=== PATIENT | female | born 1945 | race Caucasian/White ===

== ENCOUNTER 2017-04-01 09:49 | Observation (INO) ==
[2017-04-01] MEDS ORDERED: 0.9 % Sodium Chloride 1,000 ML IVC ONE (09:57)
--- NOTE | 2017-04-01 10:07 | Emergency Department Note ---
Disposition Clinical Impression: Dehydration, Hyperglycemia Altered mental status Qualifiers: Altered mental status type: unspecified Qualified Code(s): R41.82 - Altered mental status, unspecified UTI (urinary tract infection) Qualifiers: Urinary tract infection type: acute cystitis Hematuria presence: without hematuria Qualified Code(s): N30.00 - Acute cystitis without hematuria Disposition: Admitted As Inpatient Condition: Fair Time of Disposition: 14:51 General Adult HPI - General Chief complaint: ED Fall Stated complaint: Fall x3, Dizzy, hyperglycemia Time Seen by Provider: 04/01/17 09:51 Source: patient, EMS Limitations: no limitations Nursing Notes Reviewed: Yes Vital Signs Reviewed: Yes - History of Present Illness HPI Narrative: 71-year-old female presents ED because of weakness and falls. She was feeling generally weak and having trouble standing and fell a couple of times. She denies any injuries from the fall. Her only subjective complaint right now is that her feet hurt from her chronic diabetic neuropathy. She denies any chest discomfort now or this morning. No associated dyspnea. She did get clammy a couple of times. No nausea or vomiting. Prehospital EKG was suggestive of inferior wall IA and she was hypotensive with systolic blood pressure 90. She received 300 mL IV bolus of saline with supplemental improvement of blood pressure. Patient presents at this point with no active chest discomfort or dyspnea. Only complains of foot pain bilaterally from her chronic diabetic neuropathy. Denies recent change in medications. She is diabetic but cannot say what her glucose has been running. Prehospital glucose was over 400. She complains of polyuria and dry mouth Pt Subjective Complaint: Weakness and recurrent falls Onset (ago): hour(s) Pain Scale: 0 Quality: other Consistency: other Improves with: nothing - Related Data Home Medications Medication Instructions Recorded Confirmed Gabapentin [Neurontin] 300 mg PO TID 05/22/16 05/22/16 Insulin ASPART [NovoLOG] 30 unit SQ TIDWM 05/22/16 05/22/16 Insulin DETEMIR [Levemir] 24 unit SQ BID 05/22/16 05/22/16 Lisinopril [Zestril] 40 mg PO DAILY 05/22/16 05/22/16 Sertraline [Zoloft] 150 mg PO DAILY 04/01/17 04/01/17 Trazodone HCl 200 mg PO HS 04/01/17 04/01/17 Allergies Allergy/AdvReac Type Severity Reaction Status Date / Time Penicillins Allergy Anaphylaxis Verified 04/01/17 15:55 Review of Systems: Complains of polyuria and increased thirst. Complains of pain in both feet but no other significant complaints. Denies chest discomfort, dyspnea or exertional symptoms. Constitutional: Reports: weakness. Denies: fever, chills Cardiovascular: Denies: chest pain, palpitations, dyspnea on exertion Respiratory: Denies: cough, dyspnea, wheezes Gastrointestinal: Denies: abdominal pain, nausea, vomiting Genitourinary: Denies: urgency, dysuria Neurological: Denies: headache Past Medical History - Past Medical History Medical history: Reports: cancer, diabetes, hyperlipidemia, hypertension Psychiatric history: Reports: anxiety [employer] history: Reports: non-contributory - Social History Smoking Status: Current every day smoker Smokeless Tobacco Status: No Alcohol use: Reports: none Drug use: Reports: none Physical Exam - General Limitations: no limitations General appearance: alert - Head Head exam: atraumatic, normocephalic - Eye Eye exam: Present: normal appearance, PERRL - ENT ENT exam: normal exam, normal oropharynx - Neck Neck exam: Present: normal inspection, full ROM - Chest Chest inspection: Present: normal inspection, symmetric chest wall rise - Respiratory Respiratory exam: Present: normal lung sounds bilaterally. Absent: respiratory distress - Cardiovascular Cardiovascular exam: Present: regular rate, normal rhythm - Abdominal Exam Abdominal exam: Present: soft, Non-Tender - Extremities Exam Extremities exam: Present: normal inspection - Expanded Lower Extremity Exam Lower leg exam: Absent: swelling Neurovascular/Tendon exam: Present: normal capillary refill - Back Exam Back exam: Present: normal inspection - Neurological Exam Neurological exam: Present: alert, oriented X3 - Psychiatric Psychiatric exam: Present: normal affect, normal mood - Skin Skin exam: Present: warm, dry Course - Reevaluation(s) Reevaluation #1: Patient is not currently having chest pain nor has she had chest pain today. She was complaining of generalized weakness and was falling and upon initial arrival of EMS she was hypotensive. Prehospital EKG was suggestive of inferior wall infarction with mild elevation and straightening of the T-wave upstroke. Her EKG has very mild elevation of less than 1 mm but contours of the EKG are suspicious for injury pattern. No current chest pain. No current dyspnea. Sending the left and right-sided EKGs to cardiology () and awaiting call back. Time: 10:06 Reevaluation #2: Spoke to Dr. Ingram; will review the EKGs Time: 10:12 Reevaluation #3: Dr. Ingram feels the EKG abnormalities are most c/w J point elevation and not STEMI Time: 10:27 Additional Reevaluation(s): 10:56 Awaiting all labs 13:12 still awaiting some labs; CBC, lactate. Catheter urine reveals moderate findings consistent with UTI. She does have a true penicillin allergy reporting that she had anaphylactic shock with it in the past. 14:35 spoke with the hospitalist for admission. Vital Signs Temperature 98.1 F 04/01/17 09:51 Pulse Rate 77 04/01/17 09:51 Respiratory Rate 16 04/01/17 09:51 Blood Pressure 133/111 04/01/17 09:51 O2 Sat by Pulse Oximetry 92 04/01/17 09:51 Temperature 98.1 F 04/01/17 16:37 Pulse Rate 64 04/01/17 16:37 Respiratory Rate 15 04/01/17 16:37 Blood Pressure 134/64 04/01/17 16:37 O2 Sat by Pulse Oximetry 95 04/01/17 16:37 Oxygen Delivery Oxygen Delivery Room Air Medical Decision Making - Lab Data Result diagrams: 04/01/17 13:15 04/01/17 10:47 Lab Results 04/01/17 04/01/17 04/01/17 Range/Units 10:03 10:47 10:47 WBC (4.3-11.1) K/mcL RBC (3.82-4.97) M/mcL Hgb (11.5-15.4) g/dL Hct (35.3-44.9) % MCV (83.0-100.0) fL MCH (28.0-33.3) pg MCHC (31.6-35.5) g/dL RDW (11.5-14.5) % Plt Count (140-400) K/mcL MPV (9.4-12.4) fL Immature Gran % (0-4) % Seg Neutrophils % % Lymphocytes % % Monocytes % % Eosinophils % % Basophils % % Neutrophils # (1.6-8.9) K/mcL Lymphocytes # (0.6-4.6) K/mcL Monocytes # (0.0-1.3) K/mcL Eosinophils # (0.0-0.6) K/mcL Basophils # (0.0-0.2) K/mcL VBG pH (7.32-7.42) pH Units VBG pCO2 (41-51) mmHg VBG pO2 (25-40) mmHg VBG HCO3 (21-27) mEq/L Sodium 136 (136-145) mEq/L Potassium 4.4 (3.5-4.5) mEq/L Chloride 103 (98-109) mEq/L Carbon Dioxide 25 (19-29) mEq/L BUN 24 H (7-20) mg/dL Creatinine 0.97 (0.57-1.11) mg/dL Est GFR ( Amer) > 60 (> 60) Est GFR (Non-Af Amer) 56 L (> 60) BUN/Creatinine Ratio 25 (6-26) Glucose 384 H (70-99) mg/dL POC Glucose 399 H (58-89) Calculated Osmolality 302 H (280-300) Lactic Acid (0.5-2.2) mmol/L Calcium 9.5 (8.6-10.8) mg/dL Magnesium 1.9 (1.6-2.6) mg/dL Troponin I 0.00 (0-0.03) ng/mL Beta-Hydroxybutyric Acd 0.25 (0.02-0.27) mmol/L Urine Color (Yellow) Urine Clarity (Clear) Urine pH (5.0-8.0) pH Units Ur Specific [place] (1.010-1.025) Urine Protein (Neg-Trace) mg/dL Urine Glucose (UA) (Normal) mg/dL Urine Ketones (Negative) mg/dL Urine Blood (Negative) Urine Nitrite (Negative) Urine Bilirubin (Negative) Urine Urobilinogen (Normal) mg/dL Ur Leukocyte Esterase (Negative) Urine Microscopic RBC (0-3) per hpf Urine Microscopic WBC (0-3) per hpf Ur Squamous Epith Cells (None-Few) per lpf Urine Bacteria (None-Few) per hpf Hyaline Casts (None-Few) per lpf Ur Culture Indicated? (NO) 04/01/17 04/01/17 04/01/17 Range/Units 10:47 12:07 12:16 WBC (4.3-11.1) K/mcL RBC (3.82-4.97) M/mcL Hgb (11.5-15.4) g/dL Hct (35.3-44.9) % MCV (83.0-100.0) fL MCH (28.0-33.3) pg MCHC (31.6-35.5) g/dL RDW (11.5-14.5) % Plt Count (140-400) K/mcL MPV (9.4-12.4) fL Immature Gran % (0-4) % Seg Neutrophils % % Lymphocytes % % Monocytes % % Eosinophils % % Basophils % % Neutrophils # (1.6-8.9) K/mcL Lymphocytes # (0.6-4.6) K/mcL Monocytes # (0.0-1.3) K/mcL Eosinophils # (0.0-0.6) K/mcL Basophils # (0.0-0.2) K/mcL VBG pH 7.34 (7.32-7.42) pH Units VBG pCO2 50 (41-51) mmHg VBG pO2 71 H (25-40) mmHg VBG HCO3 25.0 (21-27) mEq/L Sodium (136-145) mEq/L Potassium (3.5-4.5) mEq/L Chloride (98-109) mEq/L Carbon Dioxide (19-29) mEq/L BUN (7-20) mg/dL Creatinine (0.57-1.11) mg/dL Est GFR ( Amer) (> 60) Est GFR (Non-Af Amer) (> 60) BUN/Creatinine Ratio (6-26) Glucose (70-99) mg/dL POC Glucose 304 H (58-89) Calculated Osmolality (280-300) Lactic Acid (0.5-2.2) mmol/L Calcium (8.6-10.8) mg/dL Magnesium (1.6-2.6) mg/dL Troponin I (0-0.03) ng/mL Beta-Hydroxybutyric Acd (0.02-0.27) mmol/L Urine Color Yellow (Yellow) Urine Clarity Cloudy A (Clear) Urine pH 6.0 (5.0-8.0) pH Units Ur Specific [place] 1.026 H (1.010-1.025) Urine Protein Negative (Neg-Trace) mg/dL Urine Glucose (UA) >=1000 H (Normal) mg/dL Urine Ketones Negative (Negative) mg/dL Urine Blood Negative (Negative) Urine Nitrite Positive A (Negative) Urine Bilirubin Negative (Negative) Urine Urobilinogen Normal (Normal) mg/dL Ur Leukocyte Esterase Small H (Negative) Urine Microscopic RBC 0-3 (0-3) per hpf Urine Microscopic WBC 50-100 H (0-3) per hpf Ur Squamous Epith Cells Many H (None-Few) per lpf Urine Bacteria Many H (None-Few) per hpf Hyaline Casts None Seen (None-Few) per lpf Ur Culture Indicated? YES A (NO) 04/01/17 04/01/17 Range/Units 13:15 13:15 WBC 8.2 (4.3-11.1) K/mcL RBC 5.25 H (3.82-4.97) M/mcL Hgb 15.0 (11.5-15.4) g/dL Hct 44.5 (35.3-44.9) % MCV 84.8 (83.0-100.0) fL MCH 28.6 (28.0-33.3) pg MCHC 33.7 (31.6-35.5) g/dL RDW 12.5 (11.5-14.5) % Plt Count 137 L (140-400) K/mcL MPV 11.9 (9.4-12.4) fL Immature Gran % 0.1 (0-4) % Seg Neutrophils % 55.0 % Lymphocytes % 33.3 % Monocytes % 6.1 % Eosinophils % 5.0 % Basophils % 0.5 % Neutrophils # 4.5 (1.6-8.9) K/mcL Lymphocytes # 2.7 (0.6-4.6) K/mcL Monocytes # 0.5 (0.0-1.3) K/mcL Eosinophils # 0.4 (0.0-0.6) K/mcL Basophils # 0.0 (0.0-0.2) K/mcL VBG pH (7.32-7.42) pH Units VBG pCO2 (41-51) mmHg VBG pO2 (25-40) mmHg VBG HCO3 (21-27) mEq/L Sodium (136-145) mEq/L Potassium (3.5-4.5) mEq/L Chloride (98-109) mEq/L Carbon Dioxide (19-29) mEq/L BUN (7-20) mg/dL Creatinine (0.57-1.11) mg/dL Est GFR ( Amer) (> 60) Est GFR (Non-Af Amer) (> 60) BUN/Creatinine Ratio (6-26) Glucose (70-99) mg/dL POC Glucose (58-89) Calculated Osmolality (280-300) Lactic Acid 2.1 (0.5-2.2) mmol/L Calcium (8.6-10.8) mg/dL Magnesium (1.6-2.6) mg/dL Troponin I (0-0.03) ng/mL Beta-Hydroxybutyric Acd (0.02-0.27) mmol/L Urine Color (Yellow) Urine Clarity (Clear) Urine pH (5.0-8.0) pH Units Ur Specific [place] (1.010-1.025) Urine Protein (Neg-Trace) mg/dL Urine Glucose (UA) (Normal) mg/dL Urine Ketones (Negative) mg/dL Urine Blood (Negative) Urine Nitrite (Negative) Urine Bilirubin (Negative) Urine Urobilinogen (Normal) mg/dL Ur Leukocyte Esterase (Negative) Urine Microscopic RBC (0-3) per hpf Urine Microscopic WBC (0-3) per hpf Ur Squamous Epith Cells (None-Few) per lpf Urine Bacteria (None-Few) per hpf Hyaline Casts (None-Few) per lpf Ur Culture Indicated? (NO) - EKG Data EKG #1 EKG results narrative: Sinus rhythm. Electrical indices are within normal limits. Electrolytes is normal. There was a straight takeoff of J-point elevation to the T wave concerning for possible acute injury pattern. No recent precordial changes are noted. EKG #2 EKG attestation: Yes I reviewed and interpreted this EKG. EKG results narrative: Right-sided EKG reveals no injury pattern in lead V4.
[2017-04-01] MEDS ORDERED: Insulin Regular, Human 100 UNIT/ML SQ ONE (10:27)
[2017-04-01 11:05] LABS: Beta-Hydroxybutyric Acid 0.25 mmol/L (0.02-0.27)
[2017-04-01 11:14] LABS: BUN/Creatinine Ratio 25 (6-26); Blood Urea Nitrogen 24 mg/dL (7-20); Calcium 9.5 mg/dL (8.6-10.8); Carbon Dioxide 25 mEq/L (19-29); Chloride 103 mEq/L (98-109); Glucose 384 mg/dL (70-99); Magnesium 1.9 mg/dL (1.6-2.6); Osmolality,Calculated 302 (280-300); Potassium 4.4 mEq/L (3.5-4.5); Sodium 136 mEq/L (136-145); eGFR For African Americans > 60 (> 60); eGFR For Non-African Americans 56 (> 60)
[2017-04-01 11:23] LABS: VBG PH 7.34 pH Units (7.32-7.42)
[2017-04-01 12:34] LABS: Bilirubin,Urine Negative (Negative); Blood,Urine Negative (Negative); Clarity,Urine Cloudy (Clear); Color,Urine Yellow (Yellow); Glucose,Urine (UA) >=1000 mg/dL (Normal); Ketones,Urine Negative (Negative); Leukocyte Esterase,Urine Small (Negative); Nitrite,Urine Positive (Negative); Protein,Urine Negative (Neg-Trace); Specific Gravity,Urine 1.026 (1.010-1.025); Urobilinogen,Urine Normal (Normal)
[2017-04-01 12:35] LABS: Bacteria,Urine Many per hpf (None-Few); Hyaline Casts,Urine None Seen per lpf (None-Few); RBC,Urine 0-3 per hpf (0-3); Squamous Epithelial Cell,Urine Many per lpf (None-Few); WBC,Urine 50-100 per hpf (0-3)
[2017-04-01] MEDS ORDERED: Levofloxacin 500 MG/100 ML 500 MG/100 ML BAG IVPB ONE (13:15)
[2017-04-01 13:26] LABS: Basophils % 0.5 %; Eosinophils # 0.4 K/mcL (0.0-0.6); Hematocrit 44.5 % (35.3-44.9); Immature Granulocytes % 0.1 % (0-4); Lymphocytes # 2.7 K/mcL (0.6-4.6); Lymphocytes % 33.3 %; Mean Corpuscular HGB Conc 33.7 g/dL (31.6-35.5); Mean Corpuscular Hemoglobin 28.6 pg (28.0-33.3); Mean Corpuscular Volume 84.8 fL (83.0-100.0); Mean Platelet Volume 11.9 fL (9.4-12.4); Monocytes # 0.5 K/mcL (0.0-1.3); Monocytes % 6.1 %; Neutrophils # 4.5 K/mcL (1.6-8.9); Platelet Count 137 K/mcL (140-400); Red Blood Count 5.25 M/mcL (3.82-4.97); Red Cell Distribution Width 12.5 % (11.5-14.5)
[2017-04-01] MEDS ORDERED: Naloxone 0.4 MG/ML INJ IVP PRN (15:58)
[2017-04-01] MEDS ORDERED: Dextrose Gel 15 GM PO PRN ×2 (16:04)
[2017-04-01] MEDS ORDERED: D5% in Water 1,000 ML IVC PRN (16:04)
[2017-04-01] MEDS ORDERED: *HR* Dextrose 50 % in Water (Syg) 50 ML SYRINGE IVP PRN (16:04)
--- NOTE | 2017-04-01 16:29 | Internal Med History&Physical ---
Date of Encounter: 04/01/17 Time of Encounter: 16:18 Assessment and Plan (1) UTI (urinary tract infection) Current visit: Yes Status: Acute Patient with urinary frequency, denies any pain or burning. UA consistent with infection. Patient allergic to PCN with anaphylacic reaction, will treat with levaquin. Levaquin 750mg IVPB daily 0.9NS at 100mL/hr Qualifiers: Urinary tract infection type: acute cystitis Hematuria presence: without hematuria Qualified Code(s): N30.00 - Acute cystitis without hematuria (2) Dehydration Current visit: Yes Status: Acute Patient with elevated blood sugar, urinary frequency and thirst. mucous membranes dry on exam. BUN elevated to 24. 1L bolus given in ED. IV fluids 0.9NS at 100mL/hr. (3) Hyperglycemia Current visit: Yes Status: Acute Patient presented with blood sugar 384. She is reporting urinary frequency and thirst, and reports she did not take her insulin today. Ketones were WNL. She was given 10u of insulin IV in ED and 1L bolus. Continue to monitor blood sugars ACHS. (4) Type 2 diabetes mellitus Current visit: Yes Status: Acute check Hgb A1c check blood sugars ACHS Reduce basal dose of insulin (Home dose is 30u BID), will give 16u Levemir BID Nutritional short-acting dose of 10u TID with meals (home dose is 30u TIDWM) Add Low dose sliding scale correction dose hypoglycemic protocol. Qualifiers: Diabetes mellitus complication status: with neurologic complications Diabetes mellitus complication detail: with polyneuropathy Diabetes mellitus terminal carman insulin use: with halfway use Qualified Code(s): E11.42 - Type 2 diabetes mellitus with diabetic polyneuropathy; Z79.4 - long term care phlebotomist (current) use of insulin (5) Lightheadedness Current visit: Yes Status: Acute Patient reports she had lightheadedness preceding falls today, but with no loss of consciousness. This is likely secondary to dehydration from infection and hyperglycemia. Check orthostatic vital signs. IV fluids 0.9NS at 100mL/hr (6) Smoker Current visit: Yes Status: Acute Patient reports she smokes 1PPD, discussed smoking cessation, patient would like to quit. smoking cessation education nicotine patch. (7) DVT prophylaxis Current visit: Yes Status: Acute ambulate with assistance anti-embolic stockings Lovenox 40mg SQ daily Internal Medicine - H&P: HPI Chief complaint: falls, weakness Admitted From: Emergency Dept Plans for Post Hospital Care: Home History of present illness: Ms. Torres is a 71 year old female with hypertension, hyperlipidemia, type 2 diabetes, who presents to the ED today with complaints of falls and weakness. She reports she's fallen 3 times today, and states she had lightheadedness preceding each fall, but denies loss of consciousness or hitting her head. She is also reporting urinary frequency, and weakness. She denies any headache, chest pain, palpitations, shortness of breath, fever, chills, sweats, nausea, vomiting, diarrhea. She denies pain or burning with urination. She reports numbness and tingling in her feet, which is chronic related to her diabetic nephropathy. Evaluation in the ED included an EKG which was initially concerning for ST elevation, however, it was reviewed by cardiology and felt to be J-point elevation. Troponin was negative at 0.0. WBC was normal at 8.2. Lactate was normal at 2.1. She was hyperglycemic with blood sugar of 384. Urinalysis was consistent with infection. Head CT showed no acute intracranial abnormality. On exam, patient alert and oriented, in no acute distress. Lungs are clear bilaterally to auscultation, heart has regular rate and rhythm. Past Med Surg Social Fam HX - Past Medical History Medical history: cancer (breast cancer s/p right mastectomy), diabetes, hyperlipidemia, hypertension Psychiatric history: anxiety - Past Surgical History Surgical History: breast surgery (right mastectomy), orthopedic, other - Social History Smoking Status: Current every day smoker Packs per day: 1 Smokeless Tobacco Status: No Alcohol use: none Drug use: none - Family History Mother Living Status: Age at : 67 Cause of : colon canceer Hx Family Cancer: Yes Internal Medicine - H&P: Meds Gabapentin [Neurontin] 600 mg PO TID 05/22/16 [History] Insulin ASPART [NovoLOG] 30 unit SQ TIDWM 05/22/16 [History] Insulin DETEMIR [Levemir] 30 unit SQ BID 05/22/16 [History] Lisinopril [Zestril] 40 mg PO DAILY 05/22/16 [History] Sertraline [Zoloft] 150 mg PO DAILY 05/01/17 [History] Trazodone HCl 200 mg PO HS 04/01/17 [History] Allergies Penicillins Allergy (Verified 04/01/17 15:55) Anaphylaxis All Systems PM: A 10-system review of systems was performed and is negative for pertinent findings except as documented above in the HPI. - Constitutional Constitutional: weakness, no chills, no fever(s), no night sweats - EENT Eyes: no change in vision, no discharge, no pain, no photophobia Ears: no ear discharge, no ear pain, no tinnitus Nose, mouth and throat: no dysphagia, no nasal discharge, no neck pain, no sore throat - Cardiovascular Cardiovascular ROS IM: lightheadedness, no chest pain, no diaphoresis, no dyspnea, no palpitations, no syncope - Respiratory Respiratory: no cough, no dyspnea, no wheezing, no excessive phlegm production - Gastrointestinal Gastrointestinal: no abdominal pain, no diarrhea, no hematemesis, no hematochezia, no melena, no nausea, no vomiting - Genitourinary Genitourinary: urinary frequency, no change in urinary stream, no dysuria, no flank pain, no hematuria - Musculoskeletal Musculoskeletal ROS IM: numbness (bilateral feet, chronic), tingling (bilateral feet, chronic) - Integumentary Integumentary IM: no rash, no unusual bruising - Neurological Neurological ROS: no confusion, no convulsions, no focal weakness, no tremor(s) - Hematologic/Lymphatic Hematologic/Lymphatic: no easy bruising - Constitutional Vitals: Temp Pulse Resp BP Pulse Ox 98.1 F 76 16 114/86 96 04/01/17 09:51 04/01/17 15:14 04/01/17 15:38 04/01/17 15:38 04/01/17 15:14 General appearance: Present: A&O X 3, pleasant, no acute distress - Head Head exam: Present: atraumatic, normocephalic - Eye Eye exam: Present: PERRL, conjuntiva pink, sclera anicteric Pupils: Present: PERRL - ENT ENT exam: Present: mucous membranes dry - Neck Neck exam general surgery: Present: supple, trachea midline. Absent: lymphadenopathy - Respiratory Respiratory exam: Present: CTAB. Absent: accessory muscle use, rales, rhonchi, wheezes - Cardiovascular Cardiovascular exam: Present: RRR, +S1, +S2. Absent: diastolic murmur, gallop, rubs, systolic murmur - GI/Abdominal GI/Abdominal exam: Present: normal bowel sounds, soft, no peritoneal signs. Absent: distended, tenderness - Extremities Exam Extremities exam: Present: warm, radial pulses palpable and symetrical. Absent : calf tenderness, cyanotic, pedal edema - Back Exam Back exam: Absent: CVA tenderness (L), CVA tenderness (R) - Neurological Exam Neurological exam: Present: CN II-XII intact, oriented X3, no focal deficits. Absent: pronater drift, facial droop, speech deficit - Skin Skin exam: Present: dry, intact Internal Med - H&P Results - Labs CBC & Chem 7: 04/01/17 13:15 04/01/17 10:47 Labs: All Lab Results (24 Hours) 04/01/17 04/01/17 04/01/17 Range/Units 10:03 10:47 10:47 WBC (4.3-11.1) K/mcL RBC (3.82-4.97) M/mcL Hgb (11.5-15.4) g/dL Hct (35.3-44.9) % MCV (83.0-100.0) fL MCH (28.0-33.3) pg MCHC (31.6-35.5) g/dL RDW (11.5-14.5) % Plt Count (140-400) K/mcL MPV (9.4-12.4) fL Immature Gran % (0-4) % Seg Neutrophils % % Lymphocytes % % Monocytes % % Eosinophils % % Basophils % % Neutrophils # (1.6-8.9) K/mcL Lymphocytes # (0.6-4.6) K/mcL Monocytes # (0.0-1.3) K/mcL Eosinophils # (0.0-0.6) K/mcL Basophils # (0.0-0.2) K/mcL VBG pH (7.32-7.42) pH Units VBG pCO2 (41-51) mmHg VBG pO2 (25-40) mmHg VBG HCO3 (21-27) mEq/L Sodium 136 (136-145) mEq/L Potassium 4.4 (3.5-4.5) mEq/L Chloride 103 (98-109) mEq/L Carbon Dioxide 25 (19-29) mEq/L BUN 24 H (7-20) mg/dL Creatinine 0.97 (0.57-1.11) mg/dL Est GFR ( Amer) > 60 (> 60) Est GFR (Non-Af Amer) 56 L (> 60) BUN/Creatinine Ratio 25 (6-26) Glucose 384 H (70-99) mg/dL POC Glucose 399 H (58-89) Calculated Osmolality 302 H (280-300) Lactic Acid (0.5-2.2) mmol/L Calcium 9.5 (8.6-10.8) mg/dL Magnesium 1.9 (1.6-2.6) mg/dL Troponin I 0.00 (0-0.03) ng/mL Beta-Hydroxybutyric Acd 0.25 (0.02-0.27) mmol/L Urine Color (Yellow) Urine Clarity (Clear) Urine pH (5.0-8.0) pH Units Ur Specific [place] (1.010-1.025) Urine Protein (Neg-Trace) mg/dL Urine Glucose (UA) (Normal) mg/dL Urine Ketones (Negative) mg/dL Urine Blood (Negative) Urine Nitrite (Negative) Urine Bilirubin (Negative) Urine Urobilinogen (Normal) mg/dL Ur Leukocyte Esterase (Negative) Urine Microscopic RBC (0-3) per hpf Urine Microscopic WBC (0-3) per hpf Ur Squamous Epith Cells (None-Few) per lpf Urine Bacteria (None-Few) per hpf Hyaline Casts (None-Few) per lpf Ur Culture Indicated? (NO) 04/01/17 04/01/17 04/01/17 Range/Units 10:47 12:07 12:16 WBC (4.3-11.1) K/mcL RBC (3.82-4.97) M/mcL Hgb (11.5-15.4) g/dL Hct (35.3-44.9) % MCV (83.0-100.0) fL MCH (28.0-33.3) pg MCHC (31.6-35.5) g/dL RDW (11.5-14.5) % Plt Count (140-400) K/mcL MPV (9.4-12.4) fL Immature Gran % (0-4) % Seg Neutrophils % % Lymphocytes % % Monocytes % % Eosinophils % % Basophils % % Neutrophils # (1.6-8.9) K/mcL Lymphocytes # (0.6-4.6) K/mcL Monocytes # (0.0-1.3) K/mcL Eosinophils # (0.0-0.6) K/mcL Basophils # (0.0-0.2) K/mcL VBG pH 7.34 (7.32-7.42) pH Units VBG pCO2 50 (41-51) mmHg VBG pO2 71 H (25-40) mmHg VBG HCO3 25.0 (21-27) mEq/L Sodium (136-145) mEq/L Potassium (3.5-4.5) mEq/L Chloride (98-109) mEq/L Carbon Dioxide (19-29) mEq/L BUN (7-20) mg/dL Creatinine (0.57-1.11) mg/dL Est GFR ( Amer) (> 60) Est GFR (Non-Af Amer) (> 60) BUN/Creatinine Ratio (6-26) Glucose (70-99) mg/dL POC Glucose 304 H (58-89) Calculated Osmolality (280-300) Lactic Acid (0.5-2.2) mmol/L Calcium (8.6-10.8) mg/dL Magnesium (1.6-2.6) mg/dL Troponin I (0-0.03) ng/mL Beta-Hydroxybutyric Acd (0.02-0.27) mmol/L Urine Color Yellow (Yellow) Urine Clarity Cloudy A (Clear) Urine pH 6.0 (5.0-8.0) pH Units Ur Specific [place] 1.026 H (1.010-1.025) Urine Protein Negative (Neg-Trace) mg/dL Urine Glucose (UA) >=1000 H (Normal) mg/dL Urine Ketones Negative (Negative) mg/dL Urine Blood Negative (Negative) Urine Nitrite Positive A (Negative) Urine Bilirubin Negative (Negative) Urine Urobilinogen Normal (Normal) mg/dL Ur Leukocyte Esterase Small H (Negative) Urine Microscopic RBC 0-3 (0-3) per hpf Urine Microscopic WBC 50-100 H (0-3) per hpf Ur Squamous Epith Cells Many H (None-Few) per lpf Urine Bacteria Many H (None-Few) per hpf Hyaline Casts None Seen (None-Few) per lpf Ur Culture Indicated? YES A (NO) 04/01/17 04/01/17 Range/Units 13:15 13:15 WBC 8.2 (4.3-11.1) K/mcL RBC 5.25 H (3.82-4.97) M/mcL Hgb 15.0 (11.5-15.4) g/dL Hct 44.5 (35.3-44.9) % MCV 84.8 (83.0-100.0) fL MCH 28.6 (28.0-33.3) pg MCHC 33.7 (31.6-35.5) g/dL RDW 12.5 (11.5-14.5) % Plt Count 137 L (140-400) K/mcL MPV 11.9 (9.4-12.4) fL Immature Gran % 0.1 (0-4) % Seg Neutrophils % 55.0 % Lymphocytes % 33.3 % Monocytes % 6.1 % Eosinophils % 5.0 % Basophils % 0.5 % Neutrophils # 4.5 (1.6-8.9) K/mcL Lymphocytes # 2.7 (0.6-4.6) K/mcL Monocytes # 0.5 (0.0-1.3) K/mcL Eosinophils # 0.4 (0.0-0.6) K/mcL Basophils # 0.0 (0.0-0.2) K/mcL VBG pH (7.32-7.42) pH Units VBG pCO2 (41-51) mmHg VBG pO2 (25-40) mmHg VBG HCO3 (21-27) mEq/L Sodium (136-145) mEq/L Potassium (3.5-4.5) mEq/L Chloride (98-109) mEq/L Carbon Dioxide (19-29) mEq/L BUN (7-20) mg/dL Creatinine (0.57-1.11) mg/dL Est GFR ( Amer) (> 60) Est GFR (Non-Af Amer) (> 60) BUN/Creatinine Ratio (6-26) Glucose (70-99) mg/dL POC Glucose (58-89) Calculated Osmolality (280-300) Lactic Acid 2.1 (0.5-2.2) mmol/L Calcium (8.6-10.8) mg/dL Magnesium (1.6-2.6) mg/dL Troponin I (0-0.03) ng/mL Beta-Hydroxybutyric Acd (0.02-0.27) mmol/L Urine Color (Yellow) Urine Clarity (Clear) Urine pH (5.0-8.0) pH Units Ur Specific [place] (1.010-1.025) Urine Protein (Neg-Trace) mg/dL Urine Glucose (UA) (Normal) mg/dL Urine Ketones (Negative) mg/dL Urine Blood (Negative) Urine Nitrite (Negative) Urine Bilirubin (Negative) Urine Urobilinogen (Normal) mg/dL Ur Leukocyte Esterase (Negative) Urine Microscopic RBC (0-3) per hpf Urine Microscopic WBC (0-3) per hpf Ur Squamous Epith Cells (None-Few) per lpf Urine Bacteria (None-Few) per hpf Hyaline Casts (None-Few) per lpf Ur Culture Indicated? (NO) - Diagnostic Studies Chest x-ray Additional comments: Chest X-Ray 04/01/17 09:57 IMPRESSION: 1. No acute cardiopulmonary disease. 2. New 1 cm left upper lobe nodule. A follow-up noncontrast chest CT is recommended for further evaluation. D/ / Celio Benitez MD / Celio Benitez MD Interpreting Provider: Celio Benitez MD CT scan - head Additional comments: Head CT 04/01/17 12:10 IMPRESSION: No acute intracranial abnormality. D/ / 04/01/2017 13:09:10 Celio Bennett MD / [facility] [place] Interpreting Provider: Celio Bennett MD
[2017-04-01] MEDS: Nicotine 21 MG PATCH.TD24 TD SCH (16:56)
[2017-04-01] MEDS: Insulin LISPRO 300 UNITS/3 ML VIAL SQ SCH ×2 (16:58→20:52)
[2017-04-01] MEDS: 0.9 % Sodium Chloride 1,000 ML IVC SCH (16:59)
[2017-04-01] MEDS ORDERED: Insulin LISPRO 300 UNITS/3 ML VIAL SQ SCH (17:00)
--- NOTE | 2017-04-01 18:02 | Event Note ---
Date of Encounter: 04/01/17 Time of Encounter: 18:02 Patient seen and examined with nurse practitioner. Agree with assessment and plan
[2017-04-01 19:18] LABS: Hemoglobin A1C 10.8 %
[2017-04-01] MEDS: Gabapentin 300 MG CAPSULE PO SCH (20:47)
[2017-04-01] MEDS: Insulin DETEMIR 100 UNIT/ML X5UNITS SQ SCH (20:56)
[2017-04-02] MEDS: 0.9 % Sodium Chloride 1,000 ML IVC SCH (03:27)
[2017-04-02 04:35] LABS: Basophils % 0.5 %; Eosinophils # 0.4 K/mcL (0.0-0.6); Eosinophils % 4.4 %; Hemoglobin 13.7 g/dL (11.5-15.4); Immature Granulocytes % 0.2 % (0-4); Lymphocytes # 3.2 K/mcL (0.6-4.6); Lymphocytes % 38.6 %; Mean Corpuscular HGB Conc 34.3 g/dL (31.6-35.5); Mean Corpuscular Hemoglobin 29.3 pg (28.0-33.3); Mean Corpuscular Volume 85.7 fL (83.0-100.0); Mean Platelet Volume 12.8 fL (9.4-12.4); Monocytes # 0.6 K/mcL (0.0-1.3); Monocytes % 6.7 %; Neutrophils # 4.1 K/mcL (1.6-8.9); Platelet Count 116 K/mcL (140-400); Red Blood Count 4.67 M/mcL (3.82-4.97); Red Cell Distribution Width 12.3 % (11.5-14.5); Segmented Neutrophils % 49.6 %
[2017-04-02 04:44] LABS: BUN/Creatinine Ratio 27 (6-26); Blood Urea Nitrogen 20 mg/dL (7-20); Calcium 8.6 mg/dL (8.6-10.8); Carbon Dioxide 22 mEq/L (19-29); Chloride 107 mEq/L (98-109); Glucose 123 mg/dL (70-99); Osmolality,Calculated 286 (280-300); Potassium 4.3 mEq/L (3.5-4.5); Sodium 136 mEq/L (136-145); eGFR For African Americans > 60 (> 60); eGFR For Non-African Americans > 60 (> 60)
--- NOTE | 2017-04-02 06:33 | Electrocardiograph Report ---
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
[2017-04-02] MEDS: *HR* Enoxaparin 40 MG/0.4 ML SYRINGE SQ SCH (06:51)
[2017-04-02] MEDS: Gabapentin 300 MG CAPSULE PO SCH ×3 (08:29→20:49)
[2017-04-02] MEDS: Insulin LISPRO 300 UNITS/3 ML VIAL SQ SCH ×7 (08:31→20:51)
[2017-04-02] MEDS: Lisinopril 20 MG TABLET PO SCH (08:31)
--- NOTE | 2017-04-02 11:25 | Internal Med Progress Note ---
<Jen Polanco - Last Filed: 04/02/17 15:08> Date of Encounter: 04/02/17 Time of Encounter: 09:30 - Assessment and plan (1) Falls Current Visit: Yes Status: Acute Assessment and plan: Patient reports that she had three episodes of falls at home before hospitalization. she had lightheadedness and shaking before her falls, no loss of consciousness. She has a history of seizures many years ago. She was on phenytoin and phenobarbital for about five years and then stopped her medications. Of note, patient had positive orthostatic vitals, so there is a component of dehydration as well. Plan: will get EEG IVF Qualifiers: Encounter type: sequela Qualified Code(s): W19.XXXS - Unspecified fall, sequela (2) UTI (urinary tract infection) Current Visit: Yes Status: Acute Assessment and plan: Patient reports sensation of pressure with urination and urinary frequency. Urinalysis showed evidence of UTI, urine culture grew gram negative rods. Plan: IVF continue Levaquin day 2 continue IVF Qualifiers: Urinary tract infection type: acute cystitis Hematuria presence: without hematuria Qualified Code(s): N30.00 - Acute cystitis without hematuria (3) Dehydration Current Visit: Yes Status: Acute Assessment and plan: IVF (4) Type 2 diabetes mellitus Current Visit: Yes Status: Acute Assessment and plan: poorly controlled DM note A1c was 10.8. patient states that she checks her sugars at home and usually runs in the 240s. She was counseled on importance of glycemic control and medication compliance. Plan: Insulin 16 units SQ BID with low dose sliding scale. consult to pest technician. will increase insulin as needed. IVF Qualifiers: Diabetes mellitus complication status: with neurologic complications Diabetes mellitus complication detail: with polyneuropathy Diabetes mellitus termite renewal inspector insulin use: with termite renewal inspector use Qualified Code(s): E11.42 - Type 2 diabetes mellitus with diabetic polyneuropathy; Z79.4 - [facility] (current) use of insulin (5) Lung nodule Current Visit: Yes Status: Acute Assessment and plan: CXR showed new 1cm DARNELL lung nodule. Plan: will do follow up noncontrast chest CT (6) Hyperglycemia Current Visit: Yes Status: Acute Assessment and plan: plan as above. (7) Smoker Current Visit: Yes Status: Acute Assessment and plan: Patient is still a current smoker. She has smoked 1PPD for the past 30 years. smoking cessation advised nicotine patch. (8) DVT prophylaxis Current Visit: Yes Status: Acute Assessment and plan: Lovenox SQ - Subjective Interval history: 71 year old female evaluated at bedside. she was admitted last night for falls, weakness. patient states she has noticed a 70lb weight loss in the past two years. this weight loss is unintentional. She has smoked 1PPD for the past 30 years, and is still a current smoker. she reports lightheadedness, dizziness. denies loss of consciousness when falling. she has some burning and mild pain/ pressure with urination. she states she ooccasionally checks her sugars at home and then run over 200 typically. she denies fever, chills, night sweats. she denies cough and hemoptysis. she sometimes gets dizzy when she gets up too fast. she denies any further complaints today. - Constitutional Vitals: Temp Pulse Resp BP Pulse Ox 97.8 F 83 16 120/61 97 04/02/17 06:57 04/02/17 06:57 04/02/17 06:57 04/02/17 06:57 04/02/17 06:57 General appearance: Present: A&O X 3, pleasant, no acute distress, answers questions appropriately - Head Head exam: Present: atraumatic, normocephalic - Neck Neck exam general surgery: Present: supple, trachea midline Additional comments: no lymphadenopathy noted. - Respiratory Respiratory exam: Present: wheezes - Cardiovascular Cardiovascular exam: Present: RRR - GI/Abdominal GI/Abdominal exam: Present: normal bowel sounds, soft. Absent: distended, tenderness - Extremities Exam Extremities exam: Absent: cyanotic, pedal edema - Neurological Exam Neurological exam: Present: alert, oriented X3, no focal deficits - Psychiatric Psychiatric exam: Present: anxious Internal Medicine: Result - Labs CBC & Chem 7: 04/02/17 03:58 04/02/17 02:58 Labs: Short CBC 04/02/17 Range/Units 03:58 WBC 8.2 (4.3-11.1) K/mcL Hgb 13.7 (11.5-15.4) g/dL Hct 40.0 (35.3-44.9) % Plt Count 116 L (140-400) K/mcL Neutrophils # 4.1 (1.6-8.9) K/mcL [facility] 04/02/17 02:58 Sodium 136 Potassium 4.3 Chloride 107 Carbon Dioxide 22 BUN 20 Creatinine 0.74 Glucose 123 H Calcium 8.6 Cardiac Enzymes 04/01/17 04/01/17 Range/Units 17:00 22:28 Troponin I 0.00 0.00 (0-0.03) ng/mL - VTE Documentation of Mechanical Device: Graduated compression elastic hosiery Consult Discharge Plan - Plan Referrals: Ja Szymanski MD [Primary Care Provider] - 04/11/17 1:15 pm <Amrik Cruz - Last Filed: 04/02/17 16:49> Date of Encounter: 04/02/17 - Constitutional Vitals: Temp Pulse Resp BP Pulse Ox 98.1 F 73 16 124/75 96 04/02/17 16:11 04/02/17 16:11 04/02/17 16:11 04/02/17 16:11 04/02/17 16:11 Internal Medicine: Result - Labs CBC & Chem 7: 04/02/17 03:58 04/02/17 02:58 Labs: Short CBC 04/02/17 Range/Units 03:58 WBC 8.2 (4.3-11.1) K/mcL Hgb 13.7 (11.5-15.4) g/dL Hct 40.0 (35.3-44.9) % Plt Count 116 L (140-400) K/mcL Neutrophils # 4.1 (1.6-8.9) K/mcL [facility] 04/02/17 02:58 Sodium 136 Potassium 4.3 Chloride 107 Carbon Dioxide 22 BUN 20 Creatinine 0.74 Glucose 123 H Calcium 8.6 Cardiac Enzymes 04/01/17 04/01/17 Range/Units 17:00 22:28 Troponin I 0.00 0.00 (0-0.03) ng/mL - Attending Attestation I examined this patient and my medical decision-making was reviewed with the SALES DEVELOPMENT DIRECTOR/PA/Advanced Practice Nurse/Resident Physician. I agree with the documented findings, disposition and treatment plan as described except to the extent set forth below.
[2017-04-02] MEDS: Insulin DETEMIR 100 UNIT/ML X5UNITS SQ SCH ×2 (12:32→20:50)
[2017-04-02] MEDS: Levofloxacin 250 MG/50 ML 250 MG/50 ML BAG IVPB SCH (12:36)
[2017-04-02] MEDS: Nicotine 21 MG PATCH.TD24 TD SCH (16:39)
--- NOTE | 2017-04-02 18:58 | Neurology - Consult Note ---
Date of Encounter: 04/02/17 Time of Encounter: 18:53 Assessment and Plan (1) Falls Current Visit: Yes Status: Acute Agree these falls and weakness are likely secondary to dehydration, possible UTI and hyperglycemia. her symptoms improved with medical treatment. The episodes are unlikely epileptic and the tremors occurred with the third fall is likely induced by weakness and not epileptic seizure. Patient agrees to do an EEG tomorrow but i do not feel that she really needs it. Please continue medical and supportive care. will sign off now please call if any questions Qualifiers: Encounter type: sequela Qualified Code(s): W19.XXXS - Unspecified fall, sequela History of Present Illness Chief complaint: weakness and falling HPI: Ms. Torres is a 71 year old female with PMH significant for DM, HTN, liver disesae, osteopenia, diabetic neuropathy depression who developed falls X3. neurology was consulted regarding patient's history of seizure disorder. Patient got up at 3am without light on she got up and then fell. She laid there for few minutes and finally got up and went back to bed and slept until about 6 am when she got up again and she fell again. Then at 7am she fell again, due to weakness. She also developed tremor like activity with the third fall. She knew what was going on and did not lose her consciousness. She was taking phenobarbital and dilantin more than 20 years ago for few grand mal seizures. She was told that the seizures were caused by her nerves. She was not able to tolerate Phenobarbital it was eventually stopped. She has not had any seizures since then. Patient is feeling better now. SHe walked with the PT earlier today and had no problems walking a few steps. Denies any discomforts Past Med Surg Social Fam HX - Past Medical History Medical history: cancer (breast cancer s/p right mastectomy), diabetes, hyperlipidemia, hypertension Psychiatric history: anxiety - Past Surgical History Surgical History: breast surgery (right mastectomy), orthopedic, other - Social History Smoking Status: Current every day smoker Packs per day: 1 Smokeless Tobacco Status: No Alcohol use: none Drug use: none - Family History Mother Living Status: Age at : 67 Cause of : colon canceer Hx Family Cancer: Yes Medications and Allergies Gabapentin [Neurontin] 600 mg PO TID 05/22/16 [History] Insulin ASPART [NovoLOG] 30 unit SQ TIDWM 05/22/16 [History] Insulin DETEMIR [Levemir] 30 unit SQ BID 05/22/16 [History] Lisinopril [Zestril] 40 mg PO DAILY 05/22/16 [History] Sertraline [Zoloft] 150 mg PO DAILY 04/01/17 [History] Trazodone HCl 200 mg PO HS 04/01/17 [History] Allergies Penicillins Allergy (Verified 04/01/17 15:55) Anaphylaxis All Systems: A 10-system review of systems was performed and is negative for pertinent findings except as documented above in the HPI. Physical Examination - Vital Signs Vital Signs: Initial Vital Signs Temp Pulse Resp BP Pulse Ox 98.1 F 77 16 133/111 92 04/01/17 09:51 04/01/17 09:51 04/01/17 09:51 04/01/17 09:51 04/01/17 09:51 - Constitutional General appearance: comfortable - Neurologic Detailed motor examination: full strength in all major muscle groups Motor examination - right side: 5/5: deltoids, biceps, triceps, wrist flexion, wrist extension, stock layer, hip flexors, tibialis Anterior, quadriceps, toe extension (EHL), plantarflexion Motor examination - left side: 5/5: deltoids, biceps, triceps, wrist flexion, wrist extension, hip flexors, stock layer, quadriceps, tibialis Anterior, toe extension (EHL), plantarflexion Detailed sensory examination: intact Reflex and gait examination: intact Reflexes: Biceps: 1+, Triceps: 1+, Brachioradialis: 1+, Patella: 1+, Achilles: 1 + Mental Status Examination: awake, alert, oriented to person, oriented to place, oriented to time, follows commands appropriately, answers questions appropriately, no agnosia, no aphasia, no aproxia Cranial nerve examination: PERRL, EOMI, visual lindo intact, corneal reflexes brisk symmetrically, sensory to face intact, mastication intact, no facial asymmetry is present, no dysarthria, hearing is intact symmetrically, soft palate elevates bilaterally upon phonation, gag reflex intact, flexes SCM and trapezius muscles symmetrically with full power, tongue protrudes midline, no atrophy or facial fasiculations present Cerebellar examination: no dysmetria, performs finger to nose and heel to lucio symmetrically without ataxia, no gait ataxia, no truncal ataxia, no difficulty with rapid alternating movements Results - Laboratory Findings CBC and BMP: 04/02/17 03:58 04/02/17 02:58 Abnormal lab findings: Abnormal lab results Plt Count 116 K/mcL (140-400) L 04/02/17 03:58 MPV 12.8 fL (9.4-12.4) H 04/02/17 03:58 VBG pO2 71 mmHg (25-40) H 04/01/17 10:47 BUN/Creatinine Ratio 27 (6-26) H 04/02/17 02:58 Glucose 123 mg/dL (70-99) H 04/02/17 02:58 POC Glucose 138 (58-89) H 04/02/17 16:13 Hemoglobin A1c 10.8 % (-5.6) H 04/01/17 13:15 Urine Clarity Cloudy (Clear) A 04/01/17 12:16 Ur Specific [place] 1.026 (1.010-1.025) H 04/01/17 12:16 Urine Glucose (UA) >=1000 mg/dL (Normal) H 04/01/17 12:16 Urine Nitrite Positive (Negative) A 04/01/17 12:16 Ur Leukocyte Esterase Small (Negative) H 04/01/17 12:16 Urine Microscopic WBC 50-100 per hpf (0-3) H 04/01/17 12:16 Ur Squamous Epith Cells Many per lpf (None-Few) H 04/01/17 12:16 Urine Bacteria Many per hpf (None-Few) H 04/01/17 12:16 Ur Culture Indicated? YES (NO) A 04/01/17 12:16 Consult Discharge Plan - Plan Referrals: Ja Szymanski MD [Primary Care Provider] - 04/11/17 1:15 pm
[2017-04-02] MEDS: traZODone 50 MG TABLET PO SCH ×2 (22:24)
[2017-04-03] MEDS: 0.9 % Sodium Chloride 1,000 ML IVC SCH ×2 (00:14→12:19)
[2017-04-03 05:33] LABS: Basophils % 0.6 %; Eosinophils # 0.3 K/mcL (0.0-0.6); Eosinophils % 4.5 %; Hematocrit 35.8 % (35.3-44.9); Hemoglobin 12.5 g/dL (11.5-15.4); Immature Granulocytes % 0.3 % (0-4); Lymphocytes # 2.5 K/mcL (0.6-4.6); Lymphocytes % 37.6 %; Mean Corpuscular HGB Conc 34.9 g/dL (31.6-35.5); Mean Corpuscular Hemoglobin 29.6 pg (28.0-33.3); Mean Corpuscular Volume 84.8 fL (83.0-100.0); Mean Platelet Volume 12.9 fL (9.4-12.4); Monocytes # 0.5 K/mcL (0.0-1.3); Monocytes % 7.9 %; Neutrophils # 3.3 K/mcL (1.6-8.9); Platelet Count 120 K/mcL (140-400); Red Blood Count 4.22 M/mcL (3.82-4.97); Red Cell Distribution Width 12.1 % (11.5-14.5); Segmented Neutrophils % 49.1 %
[2017-04-03 05:45] LABS: BUN/Creatinine Ratio 21 (6-26); Blood Urea Nitrogen 13 mg/dL (7-20); Calcium 8.6 mg/dL (8.6-10.8); Carbon Dioxide 27 mEq/L (19-29); Chloride 109 mEq/L (98-109); Glucose 107 mg/dL (70-99); Osmolality,Calculated 291 (280-300); Potassium 4.2 mEq/L (3.5-4.5); Sodium 140 mEq/L (136-145); eGFR For African Americans > 60 (> 60); eGFR For Non-African Americans > 60 (> 60)
[2017-04-03] MEDS: *HR* Enoxaparin 40 MG/0.4 ML SYRINGE SQ SCH (06:04)
[2017-04-03] MEDS: Acetaminophen 325 MG TABLET PO PRN (06:09)
[2017-04-03] MEDS: Insulin DETEMIR 100 UNIT/ML X5UNITS SQ SCH ×2 (08:32→20:30)
[2017-04-03] MEDS: Gabapentin 300 MG CAPSULE PO SCH ×3 (08:32→20:30)
[2017-04-03] MEDS: Lisinopril 20 MG TABLET PO SCH (08:32)
[2017-04-03] MEDS: Insulin LISPRO 300 UNITS/3 ML VIAL SQ SCH ×7 (08:33→20:30)
[2017-04-03] MEDS: Levofloxacin 250 MG/50 ML 250 MG/50 ML BAG IVPB SCH (12:21)
[2017-04-03] MEDS: Nicotine 21 MG PATCH.TD24 TD SCH (16:17)
--- NOTE | 2017-04-03 16:38 | Internal Med Progress Note ---
<Amrik Cruz P - Last Filed: 04/03/17 16:42> Date of Encounter: 04/03/17 - Constitutional Vitals: Temp Pulse Resp BP Pulse Ox 98.5 F 64 16 131/77 96 04/03/17 07:02 04/03/17 07:02 04/03/17 09:27 04/03/17 09:27 04/03/17 09:27 Internal Medicine: Result - Labs CBC & Chem 7: 04/03/17 03:35 04/03/17 03:35 Labs: Short CBC 04/03/17 Range/Units 03:35 WBC 6.7 (4.3-11.1) K/mcL Hgb 12.5 (11.5-15.4) g/dL Hct 35.8 (35.3-44.9) % Plt Count 120 L (140-400) K/mcL Neutrophils # 3.3 (1.6-8.9) K/mcL BMP 04/03/17 03:35 Sodium 140 Potassium 4.2 Chloride 109 Carbon Dioxide 27 BUN 13 Creatinine 0.63 Glucose 107 H Calcium 8.6 - Impressions Impressions Chest CT 04/02/17 15:21 IMPRESSION: 1. Multiple bilateral ground-glass opacities and nodules, some cavitary, largest in the left upper lobe measuring approximately 1.5 cm. Findings are most concerning for metastatic disease. 2. Prominent right subpectoral lymph node measuring 1.5 cm, concerning for metastatic disease. 3. Few scattered nonspecific subcentimeter mediastinal lymph nodes. 4. Postsurgical changes from prior right mastectomy and axillary dissection. The findings were sent to the [facility] at 7:50 pm on 04/02/2017to be communicated to a licensed caregiver. D/ / Mamadou Sandra MD / Mamadou Sandra MD Interpreting Provider: Mamadou Sandra MD Consult Discharge Plan - Plan Referrals: Ja Szymanski MD [Primary Care Provider] - 04/11/17 1:15 pm - Attending Attestation I examined this patient and my medical decision-making was reviewed with the RADIO ANNOUNCER/PA/Advanced Practice Nurse/Resident Physician. I agree with the documented findings, disposition and treatment plan as described except to the extent set forth below. Elderly lady admitted with frequent falls, Hyperglycemic on admission. Noted that neurology evaluated the patient. Awaiting EEG. Likely reason for fall is urinary tract infection/sepsis. We will continue this present treatment. Placement in 1-2 days. <Jen Polanco - Last Filed: 04/03/17 18:23> Date of Encounter: 04/03/17 Time of Encounter: 11:30 - Assessment and plan (1) Falls Current Visit: Yes Status: Acute Assessment and plan: Patient reports that she had three episodes of falls at home before hospitalization. she had lightheadedness and shaking before her falls, no loss of consciousness. She has a history of seizures many years ago. She was on phenytoin and phenobarbital for about five years and then stopped her medications. Of note, patient had positive orthostatic vitals, so there is a component of dehydration as well. Plan: will get EEG IVF, orthostatic vitals still positive. Qualifiers: Encounter type: sequela Qualified Code(s): W19.XXXS - Unspecified fall, sequela (2) UTI (urinary tract infection) Current Visit: Yes Status: Acute Assessment and plan: Patient reports sensation of pressure with urination and urinary frequency. Urinalysis showed evidence of UTI, urine culture grew gram negative rods. Plan: IVF continue Levaquin day 3 continue IVF Qualifiers: Urinary tract infection type: acute cystitis Hematuria presence: without hematuria Qualified Code(s): N30.00 - Acute cystitis without hematuria (3) Dehydration Current Visit: Yes Status: Acute Assessment and plan: IVF (4) Type 2 diabetes mellitus Current Visit: Yes Status: Acute Assessment and plan: poorly controlled DM note A1c was 10.8. patient states that she checks her sugars at home and usually runs in the 240s. She was counseled on importance of glycemic control and medication compliance. Plan: Insulin 16 units SQ BID with low dose sliding scale. consult to hematology nurse educator. will increase insulin as needed. 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 follow up CT chest showed cavitary cavitary lesion, concerning for metastatic disease. Plan: follow up outpatient with pulmonology. (6) Hyperglycemia Current Visit: Yes Status: Acute Assessment and plan: plan as above. (7) Smoker Current Visit: Yes Status: Acute Assessment and plan: Patient is still a current smoker. She has smoked 1PPD for the past 30 years. smoking cessation advised nicotine patch. (8) DVT prophylaxis Current Visit: Yes Status: Acute Assessment and plan: Lovenox SQ - Subjective Interval history: 71 year old female evaluated at bedside. she denies any new complaints today. - Constitutional Vitals: Temp Pulse Resp BP Pulse Ox 98.5 F 64 16 131/77 96 04/03/17 07:02 04/03/17 07:02 04/03/17 09:27 04/03/17 09:27 04/03/17 09:27 General appearance: Present: A&O X 3, pleasant, no acute distress, answers questions appropriately - Head Head exam: Present: atraumatic, normocephalic - Neck Neck exam general surgery: Present: supple, trachea midline - Respiratory Respiratory exam: Present: CTAB - Cardiovascular Cardiovascular exam: Present: systolic murmur - GI/Abdominal GI/Abdominal exam: Present: normal bowel sounds. Absent: distended, tenderness - Extremities Exam Extremities exam: Absent: cyanotic, pedal edema - Neurological Exam Neurological exam: Present: alert, oriented X3, no focal deficits - Psychiatric Psychiatric exam: Present: anxious Internal Medicine: Result - Labs CBC & Chem 7: 04/03/17 03:35 04/03/17 03:35 Labs: Short CBC 04/03/17 Range/Units 03:35 WBC 6.7 (4.3-11.1) K/mcL Hgb 12.5 (11.5-15.4) g/dL Hct 35.8 (35.3-44.9) % Plt Count 120 L (140-400) K/mcL Neutrophils # 3.3 (1.6-8.9) K/mcL BMP 04/03/17 03:35 Sodium 140 Potassium 4.2 Chloride 109 Carbon Dioxide 27 BUN 13 Creatinine 0.63 Glucose 107 H Calcium 8.6 - Impressions Impressions Chest CT 04/02/17 15:21 IMPRESSION: 1. Multiple bilateral ground-glass opacities and nodules, some cavitary, largest in the left upper lobe measuring approximately 1.5 cm. Findings are most concerning for metastatic disease. 2. Prominent right subpectoral lymph node measuring 1.5 cm, concerning for metastatic disease. 3. Few scattered nonspecific subcentimeter mediastinal lymph nodes. 4. Postsurgical changes from prior right mastectomy and axillary dissection. The findings were sent to the [facility] at 7:50 pm on 04/02/2017to be communicated to a licensed caregiver. D/ / Mamadou Sandra MD / Mamadou Sandra MD Interpreting Provider: Mamadou Sandra MD - VTE Documentation of Mechanical Device: Intermittent pneumatic compression device
[2017-04-03] MEDS: traZODone 50 MG TABLET PO SCH (22:18)
[2017-04-04] MEDS: 0.9 % Sodium Chloride 1,000 ML IVC SCH (00:25)
[2017-04-04 06:30] LABS: Basophils % 0.2 %; Eosinophils # 0.3 K/mcL (0.0-0.6); Eosinophils % 3.3 %; Hematocrit 38.7 % (35.3-44.9); Hemoglobin 13.7 g/dL (11.5-15.4); Immature Granulocytes % 0.5 % (0-4); Lymphocytes # 1.7 K/mcL (0.6-4.6); Lymphocytes % 20.8 %; Mean Corpuscular HGB Conc 35.4 g/dL (31.6-35.5); Mean Corpuscular Hemoglobin 29.1 pg (28.0-33.3); Mean Corpuscular Volume 82.2 fL (83.0-100.0); Mean Platelet Volume 12.6 fL (9.4-12.4); Monocytes # 0.8 K/mcL (0.0-1.3); Monocytes % 9.2 %; Neutrophils # 5.5 K/mcL (1.6-8.9); Platelet Count 124 K/mcL (140-400); Red Blood Count 4.71 M/mcL (3.82-4.97)
[2017-04-04] MEDS: Acetaminophen 325 MG TABLET PO PRN (06:34)
[2017-04-04] MEDS: *HR* Enoxaparin 40 MG/0.4 ML SYRINGE SQ SCH (06:34)
[2017-04-04 06:49] LABS: BUN/Creatinine Ratio 16 (6-26); Blood Urea Nitrogen 10 mg/dL (7-20); Carbon Dioxide 25 mEq/L (19-29); Chloride 106 mEq/L (98-109); Glucose 133 mg/dL (70-99); Osmolality,Calculated 289 (280-300); Potassium 3.8 mEq/L (3.5-4.5); Sodium 139 mEq/L (136-145); eGFR For African Americans > 60 (> 60); eGFR For Non-African Americans > 60 (> 60)
[2017-04-04 07:16] VITALS: BP 139/75
[2017-04-04] MEDS: Lisinopril 20 MG TABLET PO SCH (08:18)
[2017-04-04] MEDS: Gabapentin 300 MG CAPSULE PO SCH (08:18)
[2017-04-04] MEDS: Insulin LISPRO 300 UNITS/3 ML VIAL SQ SCH ×2 (08:20→08:21)
--- NOTE | 2017-04-04 11:01 | Discharge Summary ---
<Jen Polanco - Last Filed: 04/04/17 10:51> Date of Encounter: 04/04/17 Time of Encounter: 10:51 - Discharge Diagnosis (1) Falls Priority: Primary Status: Acute Qualifiers: Encounter type: sequela Qualified Code(s): W19.XXXS - Unspecified fall, sequela (2) UTI (urinary tract infection) Priority: Primary Status: Acute Qualifiers: Urinary tract infection type: acute cystitis Hematuria presence: without hematuria Qualified Code(s): N30.00 - Acute cystitis without hematuria (3) Dehydration Priority: Secondary Status: Acute (4) Type 2 diabetes mellitus Priority: Secondary Status: Acute Qualifiers: Diabetes mellitus complication status: with neurologic complications Diabetes mellitus complication detail: with polyneuropathy Diabetes mellitus ferry terminal agent insulin use: with [facility] use Qualified Code(s): E11.42 - Type 2 diabetes mellitus with diabetic polyneuropathy; Z79.4 - [facility] (current) use of insulin (5) Lung nodule Priority: Secondary Status: Acute (6) Hyperglycemia Priority: Secondary Status: Acute (7) Smoker Priority: Secondary Status: Acute (8) DVT prophylaxis Priority: Secondary Status: Acute - Discharge Medications Prescriptions: Levofloxacin [Levaquin] 250 mg PO Q24H #2 tablet Home Medications: Gabapentin [Neurontin] 600 mg PO TID 05/22/16 [History] Insulin ASPART [NovoLOG] 30 unit SQ TIDWM 05/22/16 [History] Insulin DETEMIR [Levemir] 30 unit SQ BID 05/22/16 [History] Lisinopril [Zestril] 40 mg PO DAILY 05/22/16 [History] Sertraline [Zoloft] 150 mg PO DAILY 04/01/17 [History] Trazodone HCl 200 mg PO HS 04/01/17 [History] Acetaminophen [Tylenol] 650 mg PO Q6HR PRN #0 tablet 04/04/17 [Rx] Levofloxacin [Levaquin] 250 mg PO Q24H #2 tablet 04/04/17 [Rx] Nicotine Patch [Nicoderm] 21 mg TD Q24H patch.td24 04/04/17 [Rx] Allergies/Adverse Reactions: Allergies Penicillins Allergy (Verified 04/01/17 15:55) Anaphylaxis Procedures/tests Complete & Pending: Procedures Performed prior 72 hours Category Date Time Status CT chest w/o contrast [CT chest wo con] [CT] Routine Cat Scan 04/02/17 15:21 Completed Date of admission: 04/01/17 15:17 Primary care physician: Ja Szymanski MD Consults: 04/02/17 11:59 Consult to Commercial Counsel [CONS] Routine Comment: 04/02/17 12:00 Consult to Physical Therapy [CONS] Routine Comment: Evaluate, develop and implement POC Reason for Consult: Multiple falls at home and weakness. 04/02/17 12:02 Consult to Occupational Therapy [CONS] Routine Comment: Evaluate, develop and implement POC Reason for Consult: Weakness with mutiple falls at home. - Patient Status Disposition: Home Health Service Condition: Fair Functional capacity at discharge: independent ambulation Overall status at discharge: patient is progressing back to baseline - Discharge Instructions Instructions: Urinary Tract Infection in Women (DC), Diabetes Mellitus Type 2 in Adults (DC), Fall Prevention (DC) Follow Up With: Ja Szymanski MD [Primary Care Provider] - 04/11/17 1:15 pm Alexandria Jaimes MD [Partnered Physician] - Additional Instructions: Follow up with PCP within one week of discharge. Follow up with personnel representative for CT findings of lung nodule. FInish course of LEvaquin. Take all meds as directed. patient counseled on smoking cessation. return to emergency department if symptoms persist. - Diet and Activity Activity: increase activity as tolerated Diet: diabetic diet, low fat, low cholesterol Hospital course: Ms. Torres is a 71 year old female with PMHx of HTN, HLD, T2DM, Breast cancer ( s/p right mastectomy-patient was recommended chemoradiation but refused), tobacco abuse. She was admitted to [facility] on 04/01/17 with CC of falls and weakness. Patient lives at home with her daughter. She had three episodes of falling with lightheadedness that precipitated each fall. She denies hitting her head or loss of consciousness. She also complained of symptoms of urinary frequency, and urgency. urinalysis showed evidence of UTI and she was placed on IV antibiotics. head CT showed no acute intracranial abnormality. patient had positive orthostatic vitals and received IV fluid hydration. It is likely that the etiology of her falls are secondary to her UTI and dehydration. patient was evaluated by PT/OT. It was recommended she stay at home with her daughter with 24 hour supervision, and receive Home health. Of note, patient does have hx of seizures many years ago. At that time she states she was on seizure medications for five years, and then stopped taking meds. She was seen by neurology. Neurology recommendation was that it is unlikely her falls were secondary to seizure activity, and to continue with medical and supportive care. EEG was ordered, but she refused to have an EEG done. Patient had CXR which showed no acute cardiopulmonary process, and 1cm left upper lobe nodule. Follow up non contrast CT was recommended, which showed multiple bilateral ground glass opacities and nodules, some cavitary, concerning for metastatic disease. It is recommended to the patient that she follow up with pulmonology outpatient for possible bronchoscopy. Patient showed improvement throughout her hospital stay. She had no acute events, was stable and remained stable until her discharge. Plan: follow up with PCP within one week of discharge follow up with pulmonology for lung nodule smoking cessation advised finish course of levaquin. return to emergency department of symptoms persist. - Time Spent with Patient Total time spent providing and/or coordinating discharge services: - Constitutional Vitals: Temp Pulse Resp BP Pulse Ox 98.1 F 64 18 139/75 96 04/04/17 07:15 04/04/17 07:15 04/04/17 07:15 04/04/17 07:15 04/04/17 07:43 General appearance: Present: A&O X 3, pleasant, no acute distress, answers questions appropriately - Head Head exam: Present: atraumatic, normocephalic - Neck Neck exam general surgery: Present: supple, trachea midline - Respiratory Respiratory exam: Present: CTAB - Cardiovascular Cardiovascular exam: Present: RRR, systolic murmur - GI/Abdominal GI/Abdominal exam: Present: normal bowel sounds, soft. Absent: distended, tenderness - Extremities Exam Extremities exam: Absent: cyanotic, pedal edema - Neurological Exam Neurological exam: Present: alert, normal gait, oriented X3, no focal deficits - Psychiatric Psychiatric exam: Present: normal affect, normal mood - VTE Documentation of Mechanical Device: Graduated compression elastic hosiery <Amrik Cruz - Last Filed: 04/04/17 18:14> Date of Encounter: 04/04/17 Procedures/tests Complete & Pending: Procedures Performed prior 72 hours Category Date Time Status CT chest w/o contrast [CT chest wo con] [CT] Routine Cat Scan 04/02/17 15:21 Completed Date of admission: 04/01/17 15:17 Primary care physician: Ja Szymanski MD Consults: 04/02/17 11:59 Consult to Commercial Counsel [CONS] Routine Comment: 04/02/17 12:00 Consult to Physical Therapy [CONS] Routine Comment: Evaluate, develop and implement POC Reason for Consult: Multiple falls at home and weakness. 04/02/17 12:02 Consult to Occupational Therapy [CONS] Routine Comment: Evaluate, develop and implement POC Reason for Consult: Weakness with mutiple falls at home. Hospital course: Ms. Torres is a 71 year old female - Time Spent with Patient Total time spent providing and/or coordinating discharge services: - Constitutional Vitals: Temp Pulse Resp BP Pulse Ox 98.1 F 64 18 139/75 96 04/04/17 07:15 04/04/17 07:15 04/04/17 07:15 04/04/17 07:15 04/04/17 07:43 - Attending Attestation I examined this patient and my medical decision-making was reviewed with the BOX STAMPER/PA/Advanced Practice Nurse/Resident Physician. I agree with the documented findings, disposition and treatment plan as described except to the extent set forth below.
--- NOTE | 2017-04-04 11:46 | Physician Discharge Referral ---
<Jen Polanco - Last Filed: 04/04/17 11:45> Home Health/Hosp Referral Info Transfer to: Home Health Provider in Charge Post Discharge: PCP - Diagnosis (1) Falls Priority: Primary Status: Acute (2) UTI (urinary tract infection) Priority: Secondary Status: Acute (3) Dehydration Priority: Secondary Status: Acute (4) Type 2 diabetes mellitus Priority: Secondary Status: Acute (5) Lung nodule Priority: Secondary Status: Acute (6) Hyperglycemia Priority: Secondary Status: Acute (7) Smoker Priority: Secondary Status: Acute (8) DVT prophylaxis Priority: Secondary Status: Acute - Respiratory Orders Smoking Cessation: Smoking cessation has been advised. For more information, call the [employer] Tobacco Quit Line at 4-551-RALU-NOW. - Diet/Nutrition Diet/Nutrition Orders: No Concentrated Sweets (diabetic cardiac diet.) - Activity Activity Orders: Ambulate - Services Needed Following services are medically necessary services: Home Health Aide, Physical Therapy - Transfer Medications Prescriptions: Levofloxacin [Levaquin] 250 mg PO Q24H #2 tablet Home Medications: Gabapentin [Neurontin] 600 mg PO TID 05/22/16 [History] Insulin ASPART [NovoLOG] 30 unit SQ TIDWM 05/22/16 [History] Insulin DETEMIR [Levemir] 30 unit SQ BID 05/22/16 [History] Lisinopril [Zestril] 40 mg PO DAILY 05/22/16 [History] Sertraline [Zoloft] 150 mg PO DAILY 04/01/17 [History] Trazodone HCl 200 mg PO HS 04/01/17 [History] Acetaminophen [Tylenol] 650 mg PO Q6HR PRN #0 tablet 04/04/17 [Rx] Levofloxacin [Levaquin] 250 mg PO Q24H #2 tablet 04/04/17 [Rx] Nicotine Patch [Nicoderm] 21 mg TD Q24H patch.td24 04/04/17 [Rx] Allergies/Adverse Reactions: Allergies Penicillins Allergy (Verified 04/01/17 15:55) Anaphylaxis Certification: Further, I certify that my clinical findings support that this patient is homebound (i.e. absences from home require considerable and taxing effort and are for medical reasons or jainism services or infrequently or short duration when for other reasons) because: Homebound Reason: Patient requires assistance of a person or device to safely leave home Attestation: My signature below is to certify that this patient is under my care and that I, or nurse practitioner, or a physician's assistant corporation counsel working with me, has a face-to -face encounter with this patient. <Amrik Cruz P - Last Filed: 04/04/17 18:19> - Respiratory Orders Smoking Cessation: Smoking cessation has been advised. For more information, call the [place] Tobacco Quit Line at 9-755-HSWE-NOW. Certification: Further, I certify that my clinical findings support that this patient is homebound (i.e. absences from home require considerable and taxing effort and are for medical reasons or jainism services or infrequently or short duration when for other reasons) because: Attestation: My signature below is to certify that this patient is under my care and that I, or nurse practitioner, or a physician's assistant corporation counsel working with me, has a face-to -face encounter with this patient.
== END 2017-04-04 14:25 | disposition home health service (06) ==
LOC: EMEROO 09:49 → 2NENU 09:49
PROVIDERS: ADMIT Nurse Practitioner Family; ATTEND Internal Medicine

== ENCOUNTER 2019-08-27 17:53 | Observation (INO) ==
[2019-08-27] MEDS ORDERED: *HR* Dextrose 50 % in Water (Syg) 50 ML SYRINGE IVP PRN ×2 (18:11→23:07)
[2019-08-27] MEDS ORDERED: Ondansetron 4 MG/2 ML VIAL IVP ONE (18:12)
[2019-08-27 18:46] LABS: Basophils % 0.4 %; Eosinophils % 0.3 %; Hematocrit 42.7 % (35.3-44.9); Hemoglobin 14.7 g/dL (11.5-15.4); Immature Granulocytes % 0.3 % (0-4); Lymphocytes # 1.6 K/mcL (0.6-4.6); Lymphocytes % 15.9 %; Mean Corpuscular HGB Conc 34.4 g/dL (31.6-35.5); Mean Corpuscular Hemoglobin 29.3 pg (28.0-33.3); Mean Corpuscular Volume 85.2 fL (83.0-100.0); Mean Platelet Volume 12.8 fL (9.4-12.4); Monocytes # 0.5 K/mcL (0.0-1.3); Neutrophils # 7.8 K/mcL (1.6-8.9); Platelet Count 206 K/mcL (140-400); Red Blood Count 5.01 M/mcL (3.82-4.97); Red Cell Distribution Width 12.3 % (11.5-14.5); Segmented Neutrophils % 78.1 %; White Blood Count 9.9 K/mcL (4.3-11.1)
[2019-08-27 18:49] LABS: VBG HCO3 20 mEq/L (21-27); VBG PCO2 29 mmHg (41-51); VBG PH 7.44 pH Units (7.32-7.42); VBG PO2 153 mmHg (25-50)
[2019-08-27] MEDS: 0.9 % Sodium Chloride 1,000 ML IVC SCH ×2 (19:01→19:54)
[2019-08-27 19:03] LABS: BUN/Creatinine Ratio 44 (6-26); Blood Urea Nitrogen 41 mg/dL (8-23); Calcium 9.8 mg/dL (8.6-10.3); Carbon Dioxide 21 mEq/L (23-29); Chloride 94 mEq/L (98-107); Glucose 383 mg/dL (70-105); Magnesium 2.2 mg/dL (1.6-2.6); Osmolality,Calculated 296 (280-300); Phosphorous 4.4 mg/dL (2.7-4.5); Potassium 3.9 mEq/L (3.5-5.1); Sodium 130 mEq/L (136-145); eGFR For African Americans > 60 (> 60); eGFR For Non-African Americans 59 (> 60)
[2019-08-27 19:04] LABS: Lipase 5 Units/L (11-82)
[2019-08-27 19:05] LABS: Troponin I < 0.03 ng/mL (< 0.04)
[2019-08-27] MEDS ORDERED: Insulin LISPRO 300 UNITS/3 ML VIAL SQ STA (19:49)
[2019-08-27 20:45] LABS: Bilirubin,Urine Negative (Negative); Blood,Urine Negative (Negative); Clarity,Urine Clear (Clear); Color,Urine Yellow (Yellow); Glucose,Urine (UA) >=1000 mg/dL (Normal); Ketones,Urine 15 mg/dL (Negative); Leukocyte Esterase,Urine Negative (Negative); Nitrite,Urine Negative (Negative); PH,Urine 5.5 pH Units (5.0-8.0); Protein,Urine Negative (Neg-Trace); Specific Gravity,Urine 1.028 (1.010-1.025); Urobilinogen,Urine Normal (Normal)
[2019-08-27 22:31] LABS: BUN/Creatinine Ratio 43 (6-26); Blood Urea Nitrogen 35 mg/dL (8-23); Calcium 9.1 mg/dL (8.6-10.3); Carbon Dioxide 24 mEq/L (23-29); Chloride 101 mEq/L (98-107); Glucose 189 mg/dL (70-105); Osmolality,Calculated 295 (280-300); Potassium 3.4 mEq/L (3.5-5.1); Sodium 136 mEq/L (136-145); eGFR For African Americans > 60 (> 60); eGFR For Non-African Americans > 60 (> 60)
[2019-08-27] MEDS ORDERED: D5% in 0.45% NACL w KCl 20 MEQ/1,000 ML MLS IVC PRN (22:52)
[2019-08-27] MEDS ORDERED: D5% in 0.45% NACL 1,000 ML IVC PRN (22:52)
[2019-08-27] MEDS ORDERED: Potassium Chloride 40 MEQ, Lidocaine 1% 2 ML in 0.9 % Sodium Chloride 500 ML IVPB ONE (22:53)
[2019-08-27] MEDS ORDERED: 0.9 % Sodium Chloride 1,000 ML IVC ONE (22:57)
[2019-08-27] MEDS ORDERED: Insulin Human Regular 100 UNIT in 0.9 % Sodium Chloride 100 ML IVC SCH (23:00)
[2019-08-27] MEDS ORDERED: Ondansetron ODT 4 MG TAB.RAPDIS SL PRN (23:04)
[2019-08-27] MEDS ORDERED: *HR* Promethazine 25 MG/ML VIAL IVP PRN (23:06)
[2019-08-27] MEDS ORDERED: Dextrose Gel 15 GM/37.5 ML TUBE PO PRN ×2 (23:07)
[2019-08-27] MEDS ORDERED: Gabapentin 300 MG CAPSULE PO ONE (23:32)
[2019-08-27] MEDS ORDERED: Insulin DETEMIR 100 UNIT/ML X5UNITS SQ ONE (23:46)
[2019-08-28] MEDS: Acetaminophen 325 MG TABLET PO PRN ×2 (00:41→09:49)
[2019-08-28] MEDS: Insulin LISPRO 300 UNITS/3 ML VIAL SQ SCH ×4 (00:42→16:33)
[2019-08-28] MEDS: Ringers Solution, Lactated 1,000 ML IVC SCH ×2 (01:39→06:46)
[2019-08-28] MEDS: *HR* Heparin 5,000 UNIT/ML VIAL SQ SCH ×2 (05:27→17:27)
[2019-08-28 06:01] LABS: BUN/Creatinine Ratio 44 (6-26); Blood Urea Nitrogen 31 mg/dL (8-23); Calcium 8.8 mg/dL (8.6-10.3); Carbon Dioxide 21 mEq/L (23-29); Chloride 105 mEq/L (98-107); Glucose 104 mg/dL (70-105); Osmolality,Calculated 289 (280-300); Potassium 3.8 mEq/L (3.5-5.1); Sodium 136 mEq/L (136-145); eGFR For African Americans > 60 (> 60); eGFR For Non-African Americans > 60 (> 60)
[2019-08-28] MEDS: Gabapentin 300 MG CAPSULE PO SCH ×4 (08:28→20:52)
[2019-08-28] MEDS ORDERED: Pantoprazole 40 MG VIAL IVP SCH (09:00)
[2019-08-28] MEDS ORDERED: Lisinopril 20 MG TABLET PO SCH (09:00)
[2019-08-28] MEDS: Insulin DETEMIR 100 UNIT/ML X5UNITS SQ SCH (20:51)
[2019-08-28] MEDS ORDERED: traZODone 50 MG TABLET PO SCH (21:00)
[2019-08-28] MEDS ORDERED: Insulin LISPRO 300 UNITS/3 ML VIAL SQ SCH (21:00)
[2019-08-29] MEDS ORDERED: traZODone 50 MG TABLET PO ONE (00:45)
[2019-08-29] MEDS: *HR* Heparin 5,000 UNIT/ML VIAL SQ SCH (05:21)
[2019-08-29] MEDS: Gabapentin 300 MG CAPSULE PO SCH (07:48)
[2019-08-29] MEDS: Insulin LISPRO 300 UNITS/3 ML VIAL SQ SCH ×2 (07:49→11:10)
[2019-08-29] MEDS: Insulin DETEMIR 100 UNIT/ML X5UNITS SQ SCH (07:51)
[2019-08-29 10:40] VITALS: BP 132/78
== END 2019-08-29 12:00 | disposition home health service (06) ==
LOC: 2NNU 17:53 → EMEROOARM 17:53 → SUATTDRO 23:10 → 3ANU 23:20
PROVIDERS: ADMIT Internal Medicine; ATTEND Internal Medicine